=== PATIENT | male | born 1960 | race Caucasian/White ===

== ENCOUNTER 2017-01-16 11:53 | Observation (INO) | payer OTHER ==
[~2017-01-16] VITALS: Ht 177.8 cm; Wt 88.0 kg
--- NOTE | 2017-01-16 12:20 | ED GENERAL ADULT ---
See Addendum History of Present Illness General Chief Complaint: General Adult Stated Complaint: MULTIPLE COMPLAINTS Source: patient Exam Limitations: no limitations Vital Signs & Intake/Output Vital Signs & Intake/Output Vital Signs Date Time Temp Pulse Resp B/P B/P Pulse O2 O2 Flow FiO2 Mean Ox Delivery Rate 01/16 1353 98.0 63 20 126/77 98 Room Air 01/16 1210 97.6 76 18 153/84 96 Room Air Allergies Coded Allergies: MDX - Penicillin (PENICILLIN) (SWELLING 06/24/12) Reconcile Medications Rivaroxaban (Xarelto) 20 MG TABLET 1 TAB PO DAILY DVT (Reported) with food Rosuvastatin Calcium (Crestor) 5 MG TABLET 1 TAB PO DAILY CHOLESTEROL ( Reported) Triage Note: C/O DIZZINESS SINCE 729 THIS AM, WITH TINGLING IN HANDS AND FEET, NOW C/O CHEST PAIN WITH NAUSEA AND SLIGHT SOB. Triage Nurses Notes Reviewed? yes Onset: Abrupt Duration: hour(s): HPI: 01/16/17 3 PM 56-year-old male presents to the emergency department for chest pain and altered mental status. According to the family he was in his usual state of health until this morning when he developed confusion. He said he was saying things that didn't make sense. He also admitted to the left lower extremity weakness. Now in the emergency department he complained of retrosternal chest pain 5 out of 10. No shortness of breath. The onset of the symptoms was abrupt, the duration was just today, the severity was significant as his symptoms required him to come to the emergency department for care. Past History Travel History Traveled to [place] past 21 day No Medical History Any Pertinent Medical History? see below for history Cardiovascular: hyperlipidemia, BLOOD CLOT R ARM Surgical History Surgical History: non-contributory Psychosocial History Who do you live with Patient/Self Services at Home None What is your primary language Afghan Tobacco Use: Never used ETOH Use: occasional use Family History Hx Contributory? No Review of Systems Review of Systems Constitutional: Denies: fever. EENTM: Denies: visual changes. Respiratory: Denies: short of breath. Cardiovascular: Reports: chest pain. GI: Denies: abdominal pain. Genitourinary: Reports: no symptoms. Musculoskeletal: Reports: no symptoms. Skin: Reports: no symptoms. Neurological/Psychological: Reports: see HPI. Hematologic/Endocrine: Reports: no symptoms. Immunologic/Allergic: Reports: no symptoms. Physical Exam Physical Exam General Appearance: alert, awake, anxious, mild distress Head: atraumatic, normal appearance Eyes: Bilateral: normal appearance, PERRL, EOMI. Ears, Nose, Throat: normal ENT inspection Neck: normal inspection, supple, full range of motion Respiratory: chest non-tender, no respiratory distress Cardiovascular: regular rate/rhythm Peripheral Pulses: 4+ radial (R), 4+ radial (L) Gastrointestinal: soft, non-tender Back: normal inspection Extremities: no edema Neurologic/Psych: no motor/sensory deficits, awake, alert, oriented x 3 Skin: intact, normal color, warm/dry Core Measures ACS in differential dx? Yes CVA/TIA Diagnosis: No Severe Sepsis Present: No Septic Shock Present: No Progress Differential Diagnoses I considered the following diagnoses in my evaluation of the patient: [Acute coronary syndrome, TIA, adverse drug reaction, alcohol intoxication, withdrawal syndrome] Plan of Care: Orders Procedure Date/time Status Regular Diet 01/16 L Complete Heart Healthy Diet 01/[address] in observation 01/16 1456 Active ED Holding Orders 01/16 1456 Active Vital Signs 01/16 1456 Active Code Status 01/16 1456 Active Patient Data 01/16 1455 Active URINALYSIS 01/16 1307 Complete TROPONIN LEVEL 01/16 1230 Complete PROTHROMBIN TIME 01/16 1230 Complete COMPREHENSIVE METABOLIC PANEL 01/16 1230 Complete CBC WITHOUT DIFFERENTIAL 01/16 1230 Complete EKG 01/16 1211 Active Current Medications Sig/Rachel Start time Last Medication Dose Stop Time Status Admin Sodium Chloride 1,000 ML ONCE ONE 01/16 1230 AC 01/16 (Normal Saline 0.9%) 01/17 0149 1249 Laboratory Tests 01/16/17 1308: Urinalysis LIGHT H, Urine Color YEL, Urine Clarity CLEAR, Urine pH 6.0, Ur Specific Mason 1.015, Urine Protein NEG, Urine Ketones NEG, Urine Nitrite NEG, Urine Bilirubin NEG, Urine Urobilinogen 0.2, Ur Leukocyte Esterase NEG, Ur Microscopic SEDIMENT EXAMINED, Urine RBC 1-3, Urine WBC RARE, Urine Bacteria RARE H, Urine Mucus FEW, Urine Hemoglobin SMALL H, Urine Glucose NEG 01/16/17 1235: Anion Gap 7, Estimated GFR > 60, BUN/Creatinine Ratio 21.1, Glucose 115 H, Calcium 9.4, Total Bilirubin 0.5, AST 22, ALT 29, Alkaline Phosphatase 45, Troponin I < 0.01, Total Protein 6.8, Albumin 4.1, Globulin 2.7, Albumin/ Globulin Ratio 1.5, PT 11.3, INR 1.08, CBC w Diff NO MAN DIFF REQ, RBC 5.38, MCV 87.3, MCH 29.3, RDW 14.0, MPV 7.7, Gran % 74.3, Lymphocytes % 18.0 L, Monocytes % 6.8, Eosinophils % 0.6, Basophils % 0.3, Absolute Granulocytes 6.8 H, Absolute Lymphocytes 1.7, Absolute Monocytes 0.6, Absolute Eosinophils 0.1, Absolute Basophils 0, PUBS MCHC 33.6 Initial ED EKG: NSR Prior EKG: unchanged Departure Departure Disposition: STILL A PATIENT Condition: Stable Clinical Impression Primary Impression: Altered mental status Secondary Impressions: Chest pain Referrals: MANSOOR MOTTA,MARCELO Licea (PCP/Family) Departure Forms: Customer Survey General Discharge Information Observation Note Spoke With: LEYDI BAKER MD Physician Advisor Notified: CHERIE COSBY DO Place Patient In: Non-ED OBS Care Area Rationale for Observation: My rational for observation is as follows [the patient needs observation for neuro exams every 6 hours and serial troponins]. Critical Care Note Critical Care Note Critical Care Time: non-applicable
[2017-01-16 12:43] LABS: ABSOLUTE BASOPHIL COUNT 0 /CUMM (0.0-0.2); ABSOLUTE EOSINOPHIL COUNT 0.1 /CUMM (0.0-0.7); ABSOLUTE GRANULOCYTE CT 6.8 /CUMM (1.4-6.5); ABSOLUTE LYMPH COUNT 1.7 /CUMM (1.2-3.4); ABSOLUTE MONOCYTE COUNT 0.6 /CUMM (0.10-0.60); BASOPHIL % 0.3 % (0.0-2.0); EOSINOPHIL % 0.6 % (0-5); GRANULOCYTE % 74.3 % (42.2-75.2); HEMATOCRIT 46.9 % (42-52); MEAN CORPUSCULAR HGB 29.3 PG (27.0-31.0); MEAN CORPUSCULAR HGB CONC 33.6 G/DL (33.0-37.0); MEAN CORPUSCULAR VOLUME 87.3 FL (80.0-94.0); MEAN PLATELET VOLUME 7.7 FL (7.4-10.4); PLATELET COUNT 245 /CUMM (130-400); RED BLOOD CELL CT 5.38 /CUMM (4.70-6.10); WHITE BLOOD CELL COUNT 9.2 /CUMM (4.8-10.8)
[2017-01-16 13:01] LABS: PT 11.3 SEC (9.4-12.5)
--- NOTE | 2017-01-16 13:16 | RADIOLOGY REPORT ---
EXAMINATION: CHEST 1 VIEW CLINICAL INFORMATION: Chest pain. COMPARISON: None. TECHNIQUE: An AP view of the chest is provided. FINDINGS: The cardiac silhouette is not enlarged. The mediastinal and hilar contours are unremarkable. There are neither pleural effusions nor pneumothoraces. There are no consolidations. The osseous structures are unremarkable. IMPRESSION: No evidence for acute disease.
--- NOTE | 2017-01-16 13:39 | CT SCAN REPORT ---
EXAMINATION: CT HEAD WITHOUT CONTRAST CLINICAL INFORMATION: Altered mental status. COMPARISON: 06/24/2012. TECHNIQUE: Contiguous axial images of the brain were obtained without IV contrast. DLP: 644 mGy-cm. FINDINGS: There are no pathologic extra-axial fluid collections. The lateral, third, fourth ventricles are nondilated and concordant with the appearance of the sulci. There is no evidence for acute intraparenchymal hemorrhage or infarct. There is neither mass nor mass effect. There is no shift of midline structures. There is right mastoid opacification. The paranasal sinuses and mastoid air cells are otherwise clear. There are no osseous lesions. IMPRESSION: No evidence for acute intracranial injury.
[2017-01-16] MEDS ORDERED: XARELTO20 M2 PO (14:13)
[2017-01-16] MEDS ORDERED: CRESTOR5 M1 PO (14:13)
--- NOTE | 2017-01-16 15:49 | History & Physical ---
TATE MOTTA,[facility] 01/16/17 1549: General Information and HPI MD Statement: I have seen and personally examined SHERRY EDWARDS and documented this H&P. The patient is a 56 year old M who presented with a patient stated chief complaint of [dizziness and chest pain]. Source of Information: patient, old records Exam Limitations: no limitations History of Present Illness: 56-year-old male with a past medical history hyperlipidemia, right upper extremity DVT on cervical disk fusion and chronic back pain who presented to [place] ED complaining of dizziness, chest pain, heaviness on the lower extremity, and tingling and numbness on fingers and toes. patient woke up and immediately started to complaining of acute dizziness, nausea with one episode of nonbloody vomiting. This episode was associated with bilateral upper and lower extremity tingling and numbness. Patient also reported shortness of breath and non-radiating, 6/10, pressure-like, chest pain. Pain increase with sitting up and decreased with lying flat. Patient denies palpitations, cough, or similar symptoms on the past. He also reported progressive bilateral ear ringing without change of hearing. Patient reported 40+ years of one PPD smoking history. He is currently smoker. 2 weeks ago patient was started on diazepam and flexeril for chronic back pain, last taken 2 days ago. He also takes medical marijuana. Past family hx Father: HTN Mother: lung cancer Grand father: lung cancer Grand: mother: bone cancer Uncle: lung cancer Allergies/Medications Allergies: Coded Allergies: MDX - Penicillin (PENICILLIN) (SWELLING 06/24/12) Past History Travel History Traveled to [place] past 21 day No Medical History Cardiovascular: hyperlipidemia, BLOOD CLOT R ARM Surgical History Surgical History: cervical disk fusion Past Family/Social History Family History Relations & Conditions if any Family history was reviewed; no changes noted. Psychosocial History Services at Home: None Primary Language: British Smoking Status: Current Everyday Smoker ETOH Use: occasional use Illicit Drug Use: marijuana (medical for back pain) Review of Systems Review of Systems Constitutional: Reports: weakness. Denies: chills, diaphoresis, fever, malaise. EENTM: Denies: blurred vision, visual changes, ear discharge, ear pain, hearing changes. Cardiovascular: Reports: chest pain. Denies: edema, orthopena, palpitations, peripheral edema, syncope. Respiratory: Reports: short of breath. Denies: cough, hemoptysis, orthopnea, sputum production. GI: Reports: nausea, vomiting. Denies: abdominal pain, bloating, constipation, diarrhea, melena. Genitourinary: Denies: dysuria, frequency, hematuria. Musculoskeletal: Reports: back pain. Exam & Diagnostic Data Last 24 Hrs of Vital Signs/I&O Vital Signs Date Time Temp Pulse Resp B/P B/P Pulse O2 O2 Flow FiO2 Mean Ox Delivery Rate 01/16 1726 98.3 63 14 136/84 97 Room Air 01/16 1602 97.5 70 18 121/77 96 Room Air 01/16 1353 98.0 63 20 126/77 98 Room Air 01/16 1210 97.6 76 18 153/84 96 Room Air Intake & Output 01/16 1600 01/16 0800 01/16 0000 Intake Total 1000 Output Total Balance 1000 Intake, IV 1000 Patient 87.997 kg Weight Weight Reported by Patient Measurement Method Physical Exam General Appearance Alert, Oriented X3, Cooperative, No Acute Distress HEENT Atraumatic, PERRLA, EOMI, Mucous Membr. moist/pink, ears WNL B/L Neck Supple, No JVD, +2 Carotid Pulse wo Bruit Cardiovascular Regular Rate, Normal S1, Normal S2, No Murmurs Lungs Clear to Auscultation, Normal Air Movement Abdomen Normal Bowel Sounds, Soft, No Tenderness Neurological Normal Speech, Strength at 5/5 X4 Ext, Sensation Intact, Cranial Nerves 3-12 NL Extremities No Clubbing, No Cyanosis, No Edema Last 24 Hrs of Labs/Mode: Laboratory Tests 01/16/17 1850: Troponin I < 0.01 01/16/17 1550: Methadone Screen Cancelled, Barbiturate Screen Cancelled, Ur Phencyclidine Scrn Cancelled, Amphetamines Screen Cancelled, U Benzodiazepines Scrn Cancelled, Urine Cocaine Screen Cancelled, Urine Cannabis Screen Cancelled 01/16/17 1308: Urine Opiates Screen < 100.00, Methadone Screen < 40, Barbiturate Screen < 60, Ur Phencyclidine Scrn < 6.00, Amphetamines Screen < 100, U Benzodiazepines Scrn < 85, Urine Cocaine Screen < 50, Urine Cannabis Screen 53.70 H, Urinalysis LIGHT H, Urine Color YEL, Urine Clarity CLEAR, Urine pH 6.0, Ur Specific Maiden 1.015, Urine Protein NEG, Urine Ketones NEG, Urine Nitrite NEG, Urine Bilirubin NEG, Urine Urobilinogen 0.2, Ur Leukocyte Esterase NEG, Ur Microscopic SEDIMENT EXAMINED, Urine RBC 1-3, Urine WBC RARE, Urine Bacteria RARE H, Urine Mucus FEW, Urine Hemoglobin SMALL H, Urine Glucose NEG 01/16/17 1235: Anion Gap 7, Estimated GFR > 60, BUN/Creatinine Ratio 21.1, Glucose 115 H, Calcium 9.4, Total Bilirubin 0.5, AST 22, ALT 29, Alkaline Phosphatase 45, Troponin I < 0.01, Total Protein 6.8, Albumin 4.1, Globulin 2.7, Albumin/ Globulin Ratio 1.5, PT 11.3, INR 1.08, CBC w Diff NO MAN DIFF REQ, RBC 5.38, MCV 87.3, MCH 29.3, RDW 14.0, MPV 7.7, Gran % 74.3, Lymphocytes % 18.0 L, Monocytes % 6.8, Eosinophils % 0.6, Basophils % 0.3, Absolute Granulocytes 6.8 H, Absolute Lymphocytes 1.7, Absolute Monocytes 0.6, Absolute Eosinophils 0.1, Absolute Basophils 0, PUBS MCHC 33.6, Serum Alcohol < 10.0 Assessment/Plan Assessment: #Chest Pain Hx of HLD. EKG showed no ST changes. Asymptomatic at admission time. * monitor on tele * r/o ACS with serial EKG and trops * ECHO * start Aspirin 81 * Cont' rovastatin 40 mg (gets myalgia with lipitor) #Dizziness, UE/LE numbness and heaviness Hx of HLD. Hx of DVT. Questionable TIA. CT head; No evidence for acute intracranial injury. * Start Aspirin 81 mg daily. * increase Crestor to 40 mg daily. * Carotid US * ECHO * Neuro consult #Hyperlipidemia Atorvastatin caused myalgia. * Cont' Crestor at 40 mg/daily #Chronic Back Pain Patient is taking medical marijuana. 2 weeks ago patient was started on diazepam and flexeril, last taken 2 days ago. 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 last seen for DVT year ago. every time he stop Xarelto he gets swelling and pain on the right arm. * Continue Xarelto. Heart healthy DVT PPX Xarelto Full Code As Ranked By This Provider Problem List: 1. Cervical vertebral fusion 2. Chest pain Core Measures/Miscellaneous Acute Coronary Syndrome ACS Diagnosis: No Cerebrovascular Accident CVA/TIA Diagnosis: No Congestive Heart Failure CHF Diagnosis: No Venous Thromboembolism VTE Risk Factors: Age > 40, Previous VTE, Smoking No Mech VTE prophylaxis d/t: No contraindications No VTE Pharm Prophylaxis d/t: No contraindications VTE Diagnosis: No VTE Type: NONE VTE Confirmed by (Test): NONE Severe Sepsis Severe Sepsis Present: No Septic Shock Septic Shock Present: No Miscellaneous Documentation Attending Case Discussed With: LEYDI BAKER MD Primary Care Physician: ARISTEO MAX MD Patient sees these Specialists cardiology neurology Level of Patient Care: Telemetry CLEMENTINA DEAN 01/16/17 1609: Resident Review Statement Resident Statement: examined this patient, discussed with sales management intern, agreed with sales management intern Other Findings: Patient is 56-year-old gentleman with past medical history of cervical spinal stenosis, hyperlipidemia and upper extremity DVT on as it also came with chief complaint of acute onset of dizziness along with bilateral hand numbness/ tingling with heaviness in his bilateral lower extremities since morning. Patient mentioned that this morning when he got up he felt very dizzy that he has to go back to his bed and felt like room is spinning around him. At the same time he also feels that his both hands are getting numb, his left leg gave out and then right leg gave up also and felt very heavy. During this episode he also experienced substernal chest pain 8 out of 10 but denied any diaphoresis or radiation. The patient was brought to ER by his daughter. He felt better after getting normal saline and meclizine in ER. He still feeling some dizziness when he went up to use the restroom. Patient endorses that he has chronic sinusitis and take Claritin as needed but denied any acute upper respiratory tract infection recently. He had chronic frequent urinary infections but no ear pain last ear discharge or hearing loss recently. Patient was also using chronic Flexeril and diazepam for many years but he was off of them for many years but restarted them almost 2 weeks ago but stopped 2 days ago. Vital signs on admission were temperature 97.6, pulse 76, respiratory rate 18, blood pressure 153/84 and he was saturating 96% on room air. Again for WBC count 9.2, hemoglobin 15.8, hematocrit 46.9, platelet count 245, INR 1.08, sodium 139, potassium 5.4, BUNs 19, creatinine 0.9, your urinalysis Chest x-ray was negative for any cardiopulmonary pathology Head CT was negative for any acute intracranial pathology Physical examination Constitutional alert and oriented 3 HEENT atraumatic, PERRLA, clear tympanic membrane, no nystagmus Neck supple no LAD, no carotid bruit Chest clear to auscultate Heart S1-S2 normal with no added sounds Abdomen soft with no organomegaly Extremities no edema or cyanosis noted Neurological cranial nerves II-12 normal, no neurological deficit noted, normal motor and sensory examination Assessment and plan Patient is 56-year-old male current smoker with history of hyperlipidemia and came with chief complaint of dizziness with bilateral upper extremity numbness and associated chest pain concerning for TIA and we will rule out ACS given his risk factors. Problem list 1. dizziness most likely viral in etiology with TIA to be ruled out 2. Sternal chest pain. Rule out ACS 3. Hyperlipidemia 4. History of severe spinal stenosis, chronic back pain and medical marijuana 5. History of DVT on xeralto 6. Hyperkalemia Plan 1. Telemetry monitoring 2. Neurology consultation 3. Cardiology consultation 4. We will carotid Doppler to rule out carotid stenosis 5. Echocardiogram to rule out any cardiac abnormality, regional wall motion abnormalities 6. Serial EKGs and troponins to rule out ACS we will do it at 6 PM and 12 PM 7. We will start patient on aspirin 8. We will increase dose of Crestor to 40 mg daily 9. We'll continue to also 10. Given his history of chronic benzo use we'll do toxicology screening and if is still in the system we might watch him closely for benzos withdrawal Pharmacological DVT prophylaxis Heart healthy diet Patient is full code LEYDI BAKER MD 01/16/172014: General Information and HPI Allergies/Medications Home Med list Aspirin (Aspirin*) 81 MG TAB.CHEW 81 MG PO DAILY BLOOD HEALTH Rivaroxaban (Xarelto) 20 MG TABLET 1 TAB PO DAILY DVT (Reported) with food Rosuvastatin Calcium (Crestor) 40 MG TABLET 1 TAB PO DAILY HIGH LIPID Attending MD Review Statement Attending Statement Attending MD Statement: examined this patient, discuss w/resident/PA/AUTOMATIC FOLDER SEAMER, agreed w/resident/PA/AUTOMATIC FOLDER SEAMER, discussed with family, reviewed EMR data (avail), reviewed images, amended to note Attending Assessment/Plan: The patient is a 56 yo male with h/o HL, RUE DVT (on Xarelto), and chronic back pain who presented in the ED after an episode this morning where he noted transient dizziness/lightheadedness, feeling of tingling and heaviness in both UE/LE as well as numbness and cold sensation in feet/toes. Also simultaneously described some substernal chest pain which was worse was described as pressure that resolved. He stated he had not taken his morning medication (including Xarelto). At the time of my exam his symptoms had entirely resolved. Physical Exam: VS: T 98.0, P 63, R 20, BP 126/77, PO 98% RA HEENT: eyes- PERRLA, EOMI gillian- dry mucosa w/o lesions Neck: no JVD/bruits/adenopathy Chest: clear with mild diminished breath sounds Cor: RRR, nl S1, S2 w/o murm Abd: BS+, soft, NT, - masses or HSM Ext: no edema LE, ? proximal RUE with slight firmness at site of prior known clot? Neuro: alert & oriented x 3, non-focal exam Labs/Tests- as above Impression/Plan: #Chest Pain - atypical for cardiac pain, however the patient does have risk factors. EKG w/o ischemic changes (no pain at time of exam). Doubt PE on Xarelto and no hypoxia or tachycardia. Plan: Will bring in as observation patient to telemetry service. Check serial troponin I levels, observe for further chest pain. ECHO cardiogram. Cardiology consult in morning (note- patient does see corporate quality assurance manager in [place], cannot recall name). Begin ASA 81 mg daily. #Transient Dizziness/Lightheadedness/UE/LE Heaviness- ? TIA. May have also represented hypoglycemia as the patient had not eaten. Plan: Begin ASA 81 mg daily. Increase Crestor to 40 mg daily. Carotid US, ECHO, etc. Neuro consult. Observe on telemetry and check for arrhythmia- q4h neuro checks. #Hyperlipidemia- patient states not well controlled. On Crestor as Atorvastatin caused symptoms. Plan: Continue Crestor at increased dose while evaluating for TIA. #Chronic Back Pain- patient initially did not indicate that he has been taking Valium (picked up on med reconciliation). He had received 90 tabs of 5 mg for [address] Aristeo Lawrence who is a Se[employer] Maker in [place], [place]. He had also prescribed his Crestor and Xarelto and patient states he acts as his PCP. Patient states also used medical marijuana. Plan: Patient considering alternative PCP closer to home ([place]). Will check CTPMP and treat with some valium to avoid withdrawal. 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 Unclear if hypercoag workup has been done. Plan: Continue Xarelto and obtain old records from "Data Technician" in [place].
--- NOTE | 2017-01-16 17:24 | ULTRASOUND REPORT ---
EXAMINATION: DUPLEX BILATERAL CAROTID ULTRASOUND CLINICAL INFORMATION: TIA COMPARISON: None. TECHNIQUE: Duplex bilateral carotid US was performed using real-time ultrasound and Doppler techniques (integrating B-mode 2D vascular images, Doppler spectral analysis and color flow Doppler imaging). These techniques were utilized to interrogate the extracranial carotid and vertebral arteries bilaterally. The degree of stenosis is based off criteria similar to NASCET. FINDINGS: 1. On the right: Plaque is present at the carotid bifurcation but velocity measurements are normal and do not suggest a stenosis of greater than 50% diameter reduction in the right ICA. The vertebral artery is patent demonstrating antegrade flow. The right external carotid artery shows no significant stenosis.. 2. On the left: No plaque is present at the carotid bifurcation and all velocity measurements are normal and do not suggest a stenosis of greater than 50% diameter reduction in the left ICA. The vertebral artery is patent demonstrating antegrade flow. The left external carotid artery shows no significant stenosis.. IMPRESSION: There is plaque present in the right internal carotid artery with normal velocities consistent with a minimal 0-49% stenosis. The left side is normal with no plaque seen.
[2017-01-16 17:26] VITALS: BP 136/84
--- NOTE | 2017-01-16 20:34 | Cons- Cardiology ---
FABIENNE LANDEROS MD 01/16/17 2020: General Information and HPI Consulting Request Date of Consult: 01/16/17 Requested By: LEYDI BAKER MD Reason for Consult: Chest pain History of Present Illness: The patient is a 56-year-old male with history of hyperlipidemia, right upper extremity DVT, and chronic back pain who presents with complaint of chest discomfort, dizziness, and nausea. He woke this morning with complaint of acute dizziness, this was followed by nausea, with a single episode of vomiting. He subsequently had substernal chest pressure which was a 6/10 in severity, it was associated with tingling of the fingers. No shortness of breath. No syncope. No diaphoresis. He is currently pain-free. Allergies/Medications Allergies: Coded Allergies: MDX - Penicillin (PENICILLIN) (SWELLING 06/24/12) Current Medications: Current Medications Sig/Rachel Start time Last Medication Dose Route Stop Time Status Admin Acetaminophen 650 MG Q6P PRN 01/16 1615 AC PO Aspirin 81 MG DAILY 01/17 1000 AC PO Aspirin 0 .STK-MED ONE 01/16 1649 DC PO Aspirin 81 MG DAILY 01/16 1558 DC 01/16 PO 1645 Ibuprofen 600 MG Q6P PRN 01/16 1615 AC PO Meclizine HCl 25 MG ONCE ONE 01/16 1430 DC 01/16 PO 01/16 1431 1420 Meclizine HCl 0 .STK-MED ONE 01/16 1423 DC PO Oxycodone/ 2 TAB Q6P PRN 01/16 1615 AC Acetaminophen PO Rivaroxaban 20 MG DAILY 01/16 1615 AC 01/16 PO 1645 Rosuvastatin Calcium 40 MG 1700 01/16 1700 AC 01/16 PO 2000 Sodium Chloride 1,000 ML ONCE ONE 01/16 1230 AC 01/16 IV 01/17 0149 1249 Review of Systems Review of Systems: No rash. No tremor. No melena. All other systems are reviewed and noted to be negative.. 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 Surgical History Surgical History: non-contributory Family History Relations & Conditions If Any: FATHER Hypertension Psychosocial History Services at Home: None Smoking Status: Current Everyday Smoker ETOH Use: occasional use Exam & Diagnostic Data Vital Signs and I&O Vital Signs Date Time Temp Pulse Resp B/P B/P Pulse O2 O2 Flow FiO2 Mean Ox Delivery Rate 01/16 1726 98.3 63 14 136/84 97 Room Air 01/16 1602 97.5 70 18 121/77 96 Room Air 01/16 1353 98.0 63 20 126/77 98 Room Air 01/16 1210 97.6 76 18 153/84 96 Room Air Intake & Output 01/16 1600 01/16 0800 01/16 0000 01/15 1600 01/15 0800 01/15 0000 Intake Total 1000 Output Total Balance 1000 Intake, IV 1000 Patient 194 lb Weight Weight Reported by Patient Measurement Method Physical Exam: Gen: The patient is in no acute distress HEENT: Normal nose, ears, and oropharynx. Pupils equal bilaterally. Conjunctiva normal. Neck: Supple with no JVD, no masses, and no thyromegaly Lungs: Clear to auscultation with normal respiratory effort Heart: RRR, S1, S2, no murmurs. No peripheral edema, 2+ pulses in the lower extremities bilaterally Abdomen: Soft, nontender, no masses. No hepatomegaly. No splenomegaly Extremities: No clubbing or cyanosis. Normal muscle strength in the upper and lower extremities. Skin: Normal skin turgor with no skin ulcers or lesions noted. Neuro: Cranial nerves intact. Sensation intact Psych: Alert and oriented 3 with appropriate affect Labs/Mode Results: Laboratory Tests 01/16 01/16 01/16 1850 1550 1308 Chemistry Troponin I Pending Toxicology Urine Opiates Screen (>2000 NG/ML) < 100.00 Methadone Screen (>300 NG/ML) Cancelled < 40 Barbiturate Screen (>200 NG/ML) Cancelled < 60 Ur Phencyclidine Scrn (>25 NG/ML) Cancelled < 6.00 Amphetamines Screen (>1000 NG/ML) Cancelled < 100 U Benzodiazepines Scrn (>200 NG/ML) Cancelled < 85 Urine Cocaine Screen (>300 NG/ML) Cancelled < 50 Urine Cannabis Screen (>50 NG/ML) Cancelled 53.70 H Urines Urinalysis LIGHT H Urine Color (YEL,AMB,STR) YEL Urine Clarity (CLEAR) CLEAR Urine pH (5.0 - 8.0) 6.0 Ur Specific [place] (1.001 - 1.035) 1.015 Urine Protein (NEG,<30 MG/DL) NEG Urine Ketones (NEG) NEG Urine Nitrite (NEG) NEG Urine Bilirubin (NEG) NEG Urine Urobilinogen (0.1 - 1.0 EU/dl) 0.2 Ur Leukocyte Esterase (NEG) NEG Ur Microscopic SEDIMENT EXAMINED Urine RBC (0 - 5 /HPF) 1-3 Urine WBC (0 - 2 /HPF) RARE Urine Bacteria (NEG/NONE) RARE H Urine Mucus (FEW,NONE) FEW Urine Hemoglobin (NEG) SMALL H Urine Glucose (N MG/DL) NEG 01/16 1235 Chemistry Sodium (137 - 145 mmol/L) 139 Potassium (3.5 - 5.1 mmol/L) 5.4 H Chloride (98 - 107 mmol/L) 105 Carbon Dioxide (22 - 30 mmol/L) 27 Anion Gap (5 - 16) 7 BUN (9 - 20 mg/dL) 19 Creatinine (0.7 - 1.2 mg/dL) 0.9 Estimated GFR (>60 ml/min) > 60 BUN/Creatinine Ratio (7 - 25 %) 21.1 Glucose (65 - 99 mg/dL) 115 H Calcium (8.4 - 10.2 mg/dL) 9.4 Total Bilirubin (0.2 - 1.3 mg/dL) 0.5 AST (17 - 59 U/L) 22 ALT (21 - 72 U/L) 29 Alkaline Phosphatase (< 127 U/L) 45 Troponin I (<0.11 ng/ml) < 0.01 Total Protein (6.3 - 8.2 g/dL) 6.8 Albumin (3.5 - 5.0 g/dL) 4.1 Globulin (1.9 - 4.2 gm/dL) 2.7 Albumin/Globulin Ratio (1.1 - 2.2 %) 1.5 Coagulation PT (9.4 - 12.5 SEC) 11.3 INR (0.90 - 1.17) 1.08 Hematology CBC w Diff NO MAN DIFF REQ WBC (4.8 - 10.8 /CUMM) 9.2 RBC (4.70 - 6.10 /CUMM) 5.38 Hgb (14.0 - 18.0 G/DL) 15.8 Hct (42 - 52 %) 46.9 MCV (80.0 - 94.0 FL) 87.3 MCH (27.0 - 31.0 PG) 29.3 RDW (11.5 - 14.5 %) 14.0 Plt Count (130 - 400 /CUMM) 245 MPV (7.4 - 10.4 FL) 7.7 Gran % (42.2 - 75.2 %) 74.3 Lymphocytes % (20.5 - 51.1 %) 18.0 L Monocytes % (1.7 - 9.3 %) 6.8 Eosinophils % (0 - 5 %) 0.6 Basophils % (0.0 - 2.0 %) 0.3 Absolute Granulocytes (1.4 - 6.5 /CUMM) 6.8 H Absolute Lymphocytes (1.2 - 3.4 /CUMM) 1.7 Absolute Monocytes (0.10 - 0.60 /CUMM) 0.6 Absolute Eosinophils (0.0 - 0.7 /CUMM) 0.1 Absolute Basophils (0.0 - 0.2 /CUMM) 0 PUBS MCHC (33.0 - 37.0 G/DL) 33.6 Toxicology Serum Alcohol (<10 MG/DL) < 10.0 Diagnostic Data EKG Results EKG tracing is independent reviewed, and reveals normal sinus rhythm at 70, normal EKG CXR Results chest x-ray: Negative Other Results head CT: Negative carotid Doppler study: Negative Assessment/Plan Assessment/Plan Assessment: 1. Lightheadedness and dizziness 2. Chest discomfort, rule out acute coronary syndrome 3. 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 Hyperlipidemia Plan: * Check serial troponin to rule out myocardial infarction * Monitor on telemetry. * Echocardiogram. * Continue aspirin. * If myocardial infarction is ruled out and the patient is clinically stable, we will plan on doing stress testing as an outpatient. Consult Acknowledgment - Thank you for your consult request. LEYDI LINARES MD 01/17/17 2579: General Information and HPI Allergies/Medications Home Med List: Aspirin (Aspirin*) 81 MG TAB.CHEW 81 MG PO DAILY BLOOD HEALTH Rivaroxaban (Xarelto) 20 MG TABLET 1 TAB PO DAILY DVT (Reported) with food Rosuvastatin Calcium (Crestor) 40 MG TABLET 1 TAB PO DAILY HIGH LIPID Assessment/Plan Consult Acknowledgment - Thank you for your consult request.
[2017-01-17 01:21] VITALS: BP 140/74
--- NOTE | 2017-01-17 07:44 | PN- Housestaff ---
TATE MOTTA,[facility] 01/17/17 0744: Subjective Follow-up For: dizziness and chest pain Tele-Events Since Last Visit: Sinus rhythm, heart rate 70s to 80s, no overnight events Subjective: Afebrile, hemodynamically stable, saturating well on room air. No acute overnight events reported. Patient denies any current active cleanout would like to be discharge today. Review of Systems Constitutional: Reports: no symptoms. Objective Last 24 Hrs of Vital Signs/I&O Vital Signs Date Time Temp Pulse Resp B/P B/P Pulse O2 O2 Flow FiO2 Mean Ox Delivery Rate 01/17 0823 97.9 75 18 160/78 96 Room Air 01/17 0800 96 Room Air 01/17 0121 97.9 56 12 140/74 95 Room Air 01/16 1726 98.3 63 14 136/84 97 Room Air 01/16 1602 97.5 70 18 121/77 96 Room Air Intake & Output 01/17 1600 01/17 0800 01/17 0000 Intake Total 200 730 Output Total Balance 200 730 Intake, IV 10 Intake, Oral 200 720 Patient 87.997 kg Weight Physical Exam General Appearance: Alert, Oriented X3, Cooperative, No Acute Distress HEENT: Atraumatic, PERRLA, EOMI, Mucous Membr. moist/pink Cardiovascular: Regular Rate, Normal S1, Normal S2, No Murmurs Lungs: Clear to Auscultation, Normal Air Movement Abdomen: Soft, No Tenderness Neurological: Normal Gait, Normal Speech, Strength at 5/5 X4 Ext, Cranial Nerves 3-12 NL Extremities: No Clubbing, No Cyanosis, No Edema Current Medications: Current Medications Sig/Rachel Start time Last Medication Dose Route Stop Time Status Admin Acetaminophen 650 MG Q6P PRN 01/16 161 DCD PO Aspirin 81 MG DAILY 01/17 1000 DCD 01/17 PO 0922 Aspirin 0 .STK-MED ONE 01/16 1649 DC PO Aspirin 81 MG DAILY 01/16 1558 DC 01/16 PO 1645 Ibuprofen 600 MG Q6P PRN 01/16 161 DCD PO Oxycodone/ 2 TAB Q6P PRN 01/16 1615 DCD Acetaminophen PO Patient Medication 1 ED .STK-MED ONE 01/17 1415 DC Teaching ED 01/17 1416 Rivaroxaban 20 MG DAILY 01/16 1615 DCD 01/17 PO 0922 Rosuvastatin Calcium 40 MG 1700 01/16 1700 DCD 01/16 PO 2000 Sodium Chloride 1,000 ML ONCE ONE 01/16 1230 DC 01/16 IV 01/17 0149 1249 Last 24 Hrs of Lab/Mode Results Last 24 Hrs of Labs/Mics: Laboratory Tests 01/17/17 0605: Anion Gap 8, Estimated GFR > 60, BUN/Creatinine Ratio 17.0, Troponin I < 0.01, CBC w Diff NO MAN DIFF REQ, RBC 5.24, MCV 87.4, MCH 29.2, RDW 14.1, MPV 8.6, Gran % 61.5, Lymphocytes % 25.9, Monocytes % 9.3, Eosinophils % 2.8, Basophils % 0.5, Absolute Granulocytes 6.3, Absolute Lymphocytes 2.7, Absolute Monocytes 1.0 H, Absolute Eosinophils 0.3, Absolute Basophils 0, PUBS MCHC 33.4 01/17/17 0045: Troponin I < 0.01 01/16/17 1850: Troponin I < 0.01 01/16/17 1550: Methadone Screen Cancelled, Barbiturate Screen Cancelled, Ur Phencyclidine Scrn Cancelled, Amphetamines Screen Cancelled, U Benzodiazepines Scrn Cancelled, Urine Cocaine Screen Cancelled, Urine Cannabis Screen Cancelled Assessment/Plan Assessment: #Chest Pain Hx of HLD. EKG showed no ST changes. Asymptomatic at admission time. No event was observed under telemetry monitoring. ACS was ruled out with serial EKG and trops. ECHO was done * Continue Aspirin 81 * Continue rovastatin 40 mg (gets myalgia with lipitor) * The patient will follow-up with Dr. Mckeon as an outpatient and have a nuclear stress test performed as an outpatient. #Dizziness, UE/LE numbness and heaviness Hx of HLD. Hx of DVT. Questionable TIA. CT head; No evidence for acute intracranial injury. Carotid US shows; There is plaque present in the right internal carotid artery with normal velocities consistent with a minimal 0-49% stenosis. The left side is normal with no plaque seen. * Continue Aspirin 81 mg daily. * Continue Crestor to 40 mg daily. * Neuro cleared patient for discharge. #Hyperlipidemia Atorvastatin caused myalgia. * Cont' Crestor at 40 mg/daily #Chronic Back Pain Patient is taking medical marijuana. 2 weeks ago patient was started on diazepam and flexeril, last taken 2 days ago. 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 last seen for DVT year ago. every time he stop Xarelto he gets swelling and pain on the right arm. * Continue Xarelto. Heart healthy DVT PPX Xarelto Full Code Problem List: 1. Chest pain Pain Ratin Pain Location: na Pain Goal: Remain pain free Pain Plan: See A&P Tomorrow's Labs & Rationales: See A&P LEYDI BAKER MD 01/17/17 1223: Attending MD Review Statement Attending Statement Attending MD Statement: examined this patient, discuss w/resident/PA/ORDNANCE ENGINEER, agreed w/resident/PA/ORDNANCE ENGINEER, discussed with family, reviewed EMR data (avail), discussed with nursing, discussed with case mgmt, reviewed images, amended to note Attending Assessment/Plan: The patient was seen and discussed with house staff. Appreciate Neuro and Cardiology input. OK to discharge to home today with current meds. Follow-up with Cardiology for OP stress.
[2017-01-17 07:59] LABS: ABSOLUTE BASOPHIL COUNT 0 /CUMM (0.0-0.2); ABSOLUTE EOSINOPHIL COUNT 0.3 /CUMM (0.0-0.7); ABSOLUTE GRANULOCYTE CT 6.3 /CUMM (1.4-6.5); ABSOLUTE LYMPH COUNT 2.7 /CUMM (1.2-3.4); BASOPHIL % 0.5 % (0.0-2.0); EOSINOPHIL % 2.8 % (0-5); GRANULOCYTE % 61.5 % (42.2-75.2); HEMATOCRIT 45.8 % (42-52); MEAN CORPUSCULAR HGB 29.2 PG (27.0-31.0); MEAN CORPUSCULAR HGB CONC 33.4 G/DL (33.0-37.0); MEAN CORPUSCULAR VOLUME 87.4 FL (80.0-94.0); MEAN PLATELET VOLUME 8.6 FL (7.4-10.4); PLATELET COUNT 233 /CUMM (130-400); RBC DISTRIBUTION WIDTH 14.1 % (11.5-14.5); RED BLOOD CELL CT 5.24 /CUMM (4.70-6.10); WHITE BLOOD CELL COUNT 10.3 /CUMM (4.8-10.8)
[2017-01-17 08:23] VITALS: BP 160/78
--- NOTE | 2017-01-17 08:48 | Cons- Neurology ---
See Addendum General Information and HPI Consulting Request Date of Consult: 01/17/17 Requested By: LEYDI BAKER MD Reason for Consult: dizziness, limb numbness, leg heaviness History of Present Illness: Patient reported 40+ years of one PPD smoking history. He is currently smoker. 2 weeks ago patient was started on diazepam and flexeril for chronic back pain, last taken 2 days ago. He also takes medical marijuana. States he awoke yesterday with substernal chest pain and paresthesias of the hands and feet within this associated sensation of coldness of the distal extremities. Family thought his speech was a bit off at the time. He denied diplopia or vertigo no gait imbalance. No headache no alteration of consciousness. He reports that the sensation of tingling and coldness improved once he was in the hospital and was given intravenous fluids. He has had no symptom recurrence since that time. He has chronic neck and back pain and had multiple prior spine surgeries in [facility]. Of note, he has had paresthesias of the hands and feet in association with his cervical spine disease. Family history of stroke in his paternal grandfather Has been on Lipitor for hyperlipidemia but developed muscle cramps. Was recently switched to Crestor by his primary physician, Dr. Aristeo Joel, in [place]. 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 Allergies/Medications Allergies: Coded Allergies: MDX - Penicillin (PENICILLIN) (SWELLING 06/24/12) Home Med List: Aspirin (Aspirin*) 81 MG TAB.CHEW 81 MG PO DAILY BLOOD HEALTH Rivaroxaban (Xarelto) 20 MG TABLET 1 TAB PO DAILY DVT (Reported) with food Rosuvastatin Calcium (Crestor) 40 MG TABLET 1 TAB PO DAILY HIGH LIPID Current Medications: Current Medications Sig/Rachel Start time Last Medication Dose Route Stop Time Status Admin Acetaminophen 650 MG Q6P PRN 01/16 1615 AC PO Aspirin 81 MG DAILY 01/17 1000 AC PO Aspirin 0 .STK-MED ONE 01/16 1649 DC PO Aspirin 81 MG DAILY 01/16 1558 DC 01/16 PO 1645 Ibuprofen 600 MG Q6P PRN 01/16 1615 AC PO Meclizine HCl 25 MG ONCE ONE 01/16 1430 DC 01/16 PO 01/16 1431 1420 Meclizine HCl 0 .STK-MED ONE 01/16 1423 DC PO Oxycodone/ 2 TAB Q6P PRN 01/16 1615 AC Acetaminophen PO Rivaroxaban 20 MG DAILY 01/16 1615 AC 01/16 PO 1645 Rosuvastatin Calcium 40 MG 1700 01/16 1700 AC 01/16 PO 2000 Sodium Chloride 1,000 ML ONCE ONE 01/16 1230 DC 01/16 IV 01/17 0149 1249 Review of Systems Review of Systems: REVIEW OF SYSTEMS: (-) = negative / normal blank = not discussed Neurologic: see HPI Eyes: (-) ENT: (-) Constitutional: (-) CV: See HPI Respiratory: (-) /Renal: (-) Musculoskeletal: See HPI/PMH Skin: (-) Psychiatric: (-) Heme: (-) GI: (-) Allergy/Immune: (-) Endocrine: (-) Other: (-) 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 Psychiatric: NONE Endocrine: NONE Blood Disorders: NONE 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 Surgical History Surgical History: cervical disk fusion Family History Relations & Conditions If Any: FATHER FH: HTN (hypertension) Hypertension FATHER Psychosocial History Services at Home: None Primary Language: Slovak Smoking Status: Current Everyday Smoker ETOH Use: occasional use Illicit Drug Use: marijuana (medical for back pain) Employment History 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 [employer] Records Exam & Diagnostic Data Vital Signs and I&O Vital Signs Date Time Temp Pulse Resp B/P B/P Pulse O2 O2 Flow FiO2 Mean Ox Delivery Rate 01/17 0823 97.9 75 18 160/78 96 Room Air 01/17 0121 97.9 56 12 140/74 95 Room Air 01/16 1726 98.3 63 14 136/84 97 Room Air 01/16 1602 97.5 70 18 121/77 96 Room Air 01/16 1353 98.0 63 20 126/77 98 Room Air 01/16 1210 97.6 76 18 153/84 96 Room Air Intake & Output 01/17 1600 01/17 0800 01/17 0000 Intake Total 200 730 Output Total Balance 200 730 Intake, IV 10 Intake, Oral 200 720 Patient 194 lb Weight Physical Exam: PHYSICAL EXAMINATION: nl = normal NT or blank = not tested GENERAL Appearance: nl Head: nl Eyes: nl ENT: nl Neck: nl Carotids: nl Lungs: nl Heart: nl Extremities: nl Spine: nl NEUROLOGIC MENTAL STATUS Level of consciousness: nl Orientation: nl Attention / Concentration: nl Memory: nl Fund of Knowledge: nl Speech / Language: nl NEUROLOGIC CRANIAL NERVES I: Olfaction: NT II: Optic nerves: nl Visual albert: nl III: Pupils: nl Levator palpebrae: nl III, IV, : Ocular alignment: nl Extraocular motility: nl Pursuits/ saccades: nl V: Facial sensation: nl Masseter/Pterygoids: nl VII: Facial Motor: nl VIII: Hearing (finger rub): nl IX, X: Uvula and palate: nl XI: SCM, Upper trap.: nl XII: Tongue: nl MOTOR / NEUROMUSCULAR Bulk: nl Tone: nl Strength: nl Rapid alternating movements: nl Fine motor movements: nl Abnormal / involuntary movements: none CEREBELLAR / COORDINATION: intact SENSATION: intact DTRs 1+ to 2+ in the right arm and leg trace to 1+ in the left arm and leg ANDRADE'S: (-) PLANTARS: flexor GAIT: nl Last 48 Hours of Lab Results: Recent lipid panel which patient pulled up from his [employer] database shows total cholesterol of 245, triglyceride 183, LDL 165, HDL 43 Laboratory Tests 01/17 01/17 01/16 0605 0045 1850 Chemistry Sodium (137 - 145 mmol/L) 139 Potassium (3.5 - 5.1 mmol/L) 4.4 4.3 Chloride (98 - 107 mmol/L) 106 Carbon Dioxide (22 - 30 mmol/L) 26 Anion Gap (5 - 16) 8 BUN (9 - 20 mg/dL) 17 Creatinine (0.7 - 1.2 mg/dL) 1.0 Estimated GFR (>60 ml/min) > 60 BUN/Creatinine Ratio (7 - 25 %) 17.0 Troponin I (<0.11 ng/ml) < 0.01 < 0.01 < 0.01 Hematology CBC w Diff NO MAN DIFF REQ WBC (4.8 - 10.8 /CUMM) 10.3 RBC (4.70 - 6.10 /CUMM) 5.24 Hgb (14.0 - 18.0 G/DL) 15.3 Hct (42 - 52 %) 45.8 MCV (80.0 - 94.0 FL) 87.4 MCH (27.0 - 31.0 PG) 29.2 RDW (11.5 - 14.5 %) 14.1 Plt Count (130 - 400 /CUMM) 233 MPV (7.4 - 10.4 FL) 8.6 Gran % (42.2 - 75.2 %) 61.5 Lymphocytes % (20.5 - 51.1 %) 25.9 Monocytes % (1.7 - 9.3 %) 9.3 Eosinophils % (0 - 5 %) 2.8 Basophils % (0.0 - 2.0 %) 0.5 Absolute Granulocytes (1.4 - 6.5 /CUMM) 6.3 Absolute Lymphocytes (1.2 - 3.4 /CUMM) 2.7 Absolute Monocytes (0.10 - 0.60 /CUMM) 1.0 H Absolute Eosinophils (0.0 - 0.7 /CUMM) 0.3 Absolute Basophils (0.0 - 0.2 /CUMM) 0 PUBS MCHC (33.0 - 37.0 G/DL) 33.4 01/16 01/16 1550 1308 Toxicology Urine Opiates Screen (>2000 NG/ML) < 100.00 Methadone Screen (>300 NG/ML) Cancelled < 40 Barbiturate Screen (>200 NG/ML) Cancelled < 60 Ur Phencyclidine Scrn (>25 NG/ML) Cancelled < 6.00 Amphetamines Screen (>1000 NG/ML) Cancelled < 100 U Benzodiazepines Scrn (>200 NG/ML) Cancelled < 85 Urine Cocaine Screen (>300 NG/ML) Cancelled < 50 Urine Cannabis Screen (>50 NG/ML) Cancelled 53.70 H Urines Urinalysis LIGHT H Urine Color (YEL,AMB,STR) YEL Urine Clarity (CLEAR) CLEAR Urine pH (5.0 - 8.0) 6.0 Ur Specific [place] (1.001 - 1.035) 1.015 Urine Protein (NEG,<30 MG/DL) NEG Urine Ketones (NEG) NEG Urine Nitrite (NEG) NEG Urine Bilirubin (NEG) NEG Urine Urobilinogen (0.1 - 1.0 EU/dl) 0.2 Ur Leukocyte Esterase (NEG) NEG Ur Microscopic SEDIMENT EXAMINED Urine RBC (0 - 5 /HPF) 1-3 Urine WBC (0 - 2 /HPF) RARE Urine Bacteria (NEG/NONE) RARE H Urine Mucus (FEW,NONE) FEW Urine Hemoglobin (NEG) SMALL H Urine Glucose (N MG/DL) NEG 01/16 1235 Chemistry Sodium (137 - 145 mmol/L) 139 Potassium (3.5 - 5.1 mmol/L) 5.4 H Chloride (98 - 107 mmol/L) 105 Carbon Dioxide (22 - 30 mmol/L) 27 Anion Gap (5 - 16) 7 BUN (9 - 20 mg/dL) 19 Creatinine (0.7 - 1.2 mg/dL) 0.9 Estimated GFR (>60 ml/min) > 60 BUN/Creatinine Ratio (7 - 25 %) 21.1 Glucose (65 - 99 mg/dL) 115 H Calcium (8.4 - 10.2 mg/dL) 9.4 Total Bilirubin (0.2 - 1.3 mg/dL) 0.5 AST (17 - 59 U/L) 22 ALT (21 - 72 U/L) 29 Alkaline Phosphatase (< 127 U/L) 45 Troponin I (<0.11 ng/ml) < 0.01 Total Protein (6.3 - 8.2 g/dL) 6.8 Albumin (3.5 - 5.0 g/dL) 4.1 Globulin (1.9 - 4.2 gm/dL) 2.7 Albumin/Globulin Ratio (1.1 - 2.2 %) 1.5 Coagulation PT (9.4 - 12.5 SEC) 11.3 INR (0.90 - 1.17) 1.08 Hematology CBC w Diff NO MAN DIFF REQ WBC (4.8 - 10.8 /CUMM) 9.2 RBC (4.70 - 6.10 /CUMM) 5.38 Hgb (14.0 - 18.0 G/DL) 15.8 Hct (42 - 52 %) 46.9 MCV (80.0 - 94.0 FL) 87.3 MCH (27.0 - 31.0 PG) 29.3 RDW (11.5 - 14.5 %) 14.0 Plt Count (130 - 400 /CUMM) 245 MPV (7.4 - 10.4 FL) 7.7 Gran % (42.2 - 75.2 %) 74.3 Lymphocytes % (20.5 - 51.1 %) 18.0 L Monocytes % (1.7 - 9.3 %) 6.8 Eosinophils % (0 - 5 %) 0.6 Basophils % (0.0 - 2.0 %) 0.3 Absolute Granulocytes (1.4 - 6.5 /CUMM) 6.8 H Absolute Lymphocytes (1.2 - 3.4 /CUMM) 1.7 Absolute Monocytes (0.10 - 0.60 /CUMM) 0.6 Absolute Eosinophils (0.0 - 0.7 /CUMM) 0.1 Absolute Basophils (0.0 - 0.2 /CUMM) 0 PUBS MCHC (33.0 - 37.0 G/DL) 33.6 Toxicology Serum Alcohol (<10 MG/DL) < 10.0 Imaging/Other Studies: Head CT hi COMPARISON: 06/24/2012. TECHNIQUE: Contiguous axial images of the brain were obtained without IV contrast. Hd CT 01-16: DLP: 644 mGy-cm. FINDINGS: There are no pathologic extra-axial fluid collections. The lateral, third, fourth ventricles are nondilated and concordant with the appearance of the sulci. There is no evidence for acute intraparenchymal hemorrhage or infarct. There is neither mass nor mass effect. There is no shift of midline structures. There is right mastoid opacification. The paranasal sinuses and mastoid air cells are otherwise clear. There are no osseous lesions. IMPRESSION: No evidence for acute intracranial injury. DICTATED BY: LEYDI HAWKINS MD DATE/TIME DICTATED:01/16/171332 Car 01-16: IMPRESSION: There is plaque present in the right internal carotid artery with normal velocities consistent with a minimal 0-49% stenosis. The left side is normal with no plaque seen. DICTATED BY: AYUSH ANDINO MD DATE/TIME DICTATED:01/16/171713 Assessment/Plan Assessment: Possible TIA versus hyperventilation versus positionally induced exacerbation of cervical myelopathic symptoms Hyperlipidemia, recently started on Crestor Cigarette smoker Recommendations: Continue Crestor Add aspirin 81 mg TIA education Smoking cessation Office follow-up prn Consult Acknowledgment - Thank you for your consult request.
[2017-01-17] MEDS ORDERED: ASPIRIN81 M4 PO (11:16)
[2017-01-17] MEDS ORDERED: CRESTOR40 M2 PO (11:16)
--- NOTE | 2017-01-17 11:24 | Patient Discharge Instructions ---
Discharge Instructions General Discharge Information You were seen/treated for: TIA Special Instructions: Please follow up with cardiology within one week to plan on doing stress testing as an outpatient. Please follow with neurology within one week Please come back if symptoms got worse Diet Continue normal diet: Yes Activity Full Activity/No Limits: Yes Activity Self Limited: Yes Acute Coronary Syndrome Inclusion Criteria At DC or during hospital stay patient has or had the following: ACS DIAGNOSIS No Discharge Core Measures Meds if any: Prescribed or Continued at Discharge Meds if any: NOT Prescribed or Continued at Discharge Congestive Heart Failure Inclusion Criteria At DC or during hospital stay patient has or had the following: CHF DIAGNOSIS No Discharge Core Measures Meds if any: Prescribed or Continued at Discharge Meds if any: NOT Prescribed or Continued at Discharge Cerebrovascular accident Inclusion Criteria At DC or during hospital stay patient has or had the following: CVA/TIA Diagnosis No Discharge Core Measures Meds if any: Prescribed or Continued at Discharge Meds if any: NOT Prescribed or Continued at Discharge Venous thromboembolism Inclusion Criteria VTE Diagnosis No VTE Type NONE VTE Confirmed by (Test) NONE Discharge Core Measures - Per Current guidelines, there needs to be overlap - treatment for the first 5 days of Warfarin therapy. - If discharged on Warfarin prior to 5 days of - overlap therapy, the patient will need to be - assessed for post discharge needs including - *Post discharge parental anticoagulation - *Warfarin and/or parental anticoagulation education - *Follow up date to check INR post discharge At least 5 days overlap therapy as Inpatient No Meds if any: Prescribed or Continued at Discharge Note: Overlap Therapy is Warfarin and Anticoagulant Meds if any: NOT Prescribed or Continued at Discharge
--- NOTE | 2017-01-17 13:24 | PN- Cardiology ---
Subjective Subjective: The patient is doing well today. No further neurological cardiac symptoms. No further chest discomfort. Objective Vital Signs and I&Os Vital Signs Date Time Temp Pulse Resp B/P B/P Pulse O2 O2 Flow FiO2 Mean Ox Delivery Rate 01/17 0823 97.9 75 18 160/78 96 Room Air 01/17 0800 96 Room Air 01/17 0121 97.9 56 12 140/74 95 Room Air 01/16 1726 98.3 63 14 136/84 97 Room Air 01/16 1602 97.5 70 18 121/77 96 Room Air 01/16 1353 98.0 63 20 126/77 98 Room Air Intake & Output 01/17 1600 01/17 0800 01/17 0000 01/16 1600 01/16 0800 01/16 0000 Intake Total 143 839 6435 Output Total Balance 601 940 4591 Intake, IV 10 1000 Intake, Oral 200 720 Patient 194 lb 194 lb Weight Weight Reported by Patient Measurement Method Physical Exam: General Appearance Alert, Oriented X3, Cooperative, No Acute Distress HEENT Atraumatic, PERRLA, EOMI, Mucous Membr. moist/pink, ears WNL B/L Neck Supple, No JVD, +2 Carotid Pulse wo Bruit Cardiovascular Regular Rate, Normal S1, Normal S2, No Murmurs Lungs Clear to Auscultation, Normal Air Movement Abdomen Normal Bowel Sounds, Soft, No Tenderness Neurological Normal Speech, Strength at 5/5 X4 Ext, Sensation Intact, Cranial Nerves 3-12 NL Extremities No Clubbing, No Cyanosis, No Edema Current Medications: Current Medications Sig/Rachel Start time Last Medication Dose Route Stop Time Status Admin Acetaminophen 650 MG Q6P PRN 01/16 161 DCD PO Aspirin 81 MG DAILY 01/17 1000 DCD 01/17 PO 0922 Aspirin 0 .STK-MED ONE 01/16 1649 DC PO Aspirin 81 MG DAILY 01/16 1558 DC 01/16 PO 1645 Ibuprofen 600 MG Q6P PRN 01/16 1615 DCD PO Meclizine HCl 25 MG ONCE ONE 01/16 1430 DC 01/16 PO 01/16 1431 1420 Meclizine HCl 0 .STK-MED ONE 01/16 1423 DC PO Oxycodone/ 2 TAB Q6P PRN 01/16 1615 DCD Acetaminophen PO Rivaroxaban 20 MG DAILY 01/16 1615 DCD 01/17 PO 0922 Rosuvastatin Calcium 40 MG 1700 01/16 1700 DCD 01/16 PO 2000 Sodium Chloride 1,000 ML ONCE ONE 01/16 1230 DC 01/16 IV 01/17 0149 1249 Results Last 48 Hrs of Labs/Mics: Laboratory Tests 01/17/17 0605: Anion Gap 8, Estimated GFR > 60, BUN/Creatinine Ratio 17.0, Troponin I < 0.01, CBC w Diff NO MAN DIFF REQ, RBC 5.24, MCV 87.4, MCH 29.2, RDW 14.1, MPV 8.6, Gran % 61.5, Lymphocytes % 25.9, Monocytes % 9.3, Eosinophils % 2.8, Basophils % 0.5, Absolute Granulocytes 6.3, Absolute Lymphocytes 2.7, Absolute Monocytes 1.0 H, Absolute Eosinophils 0.3, Absolute Basophils 0, PUBS MCHC 33.4 01/17/17 0045: Troponin I < 0.01 01/16/17 1850: Troponin I < 0.01 01/16/17 1550: Methadone Screen Cancelled, Barbiturate Screen Cancelled, Ur Phencyclidine Scrn Cancelled, Amphetamines Screen Cancelled, U Benzodiazepines Scrn Cancelled, Urine Cocaine Screen Cancelled, Urine Cannabis Screen Cancelled 01/16/17 1308: Urine Opiates Screen < 100.00, Methadone Screen < 40, Barbiturate Screen < 60, Ur Phencyclidine Scrn < 6.00, Amphetamines Screen < 100, U Benzodiazepines Scrn < 85, Urine Cocaine Screen < 50, Urine Cannabis Screen 53.70 H, Urinalysis LIGHT H, Urine Color YEL, Urine Clarity CLEAR, Urine pH 6.0, Ur Specific [place] 1.015, Urine Protein NEG, Urine Ketones NEG, Urine Nitrite NEG, Urine Bilirubin NEG, Urine Urobilinogen 0.2, Ur Leukocyte Esterase NEG, Ur Microscopic SEDIMENT EXAMINED, Urine RBC 1-3, Urine WBC RARE, Urine Bacteria RARE H, Urine Mucus FEW, Urine Hemoglobin SMALL H, Urine Glucose NEG 01/16/17 1235: Anion Gap 7, Estimated GFR > 60, BUN/Creatinine Ratio 21.1, Glucose 115 H, Calcium 9.4, Total Bilirubin 0.5, AST 22, ALT 29, Alkaline Phosphatase 45, Troponin I < 0.01, Total Protein 6.8, Albumin 4.1, Globulin 2.7, Albumin/ Globulin Ratio 1.5, PT 11.3, INR 1.08, CBC w Diff NO MAN DIFF REQ, RBC 5.38, MCV 87.3, MCH 29.3, RDW 14.0, MPV 7.7, Gran % 74.3, Lymphocytes % 18.0 L, Monocytes % 6.8, Eosinophils % 0.6, Basophils % 0.3, Absolute Granulocytes 6.8 H, Absolute Lymphocytes 1.7, Absolute Monocytes 0.6, Absolute Eosinophils 0.1, Absolute Basophils 0, PUBS MCHC 33.6, Serum Alcohol < 10.0 Assessment/Plan Assessment/Plan Assessment: 1. Lightheadedness and dizziness 2. Chest discomfort, rule out acute coronary syndrome 3. 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 Hyperlipidemia. Recommendations: -The patient has been stable with no recurrence of any cardiac symptoms. -Neurology input noted -The patient is ambulating without difficulty. -Cardiac workup thus far unremarkable. -The patient will follow-up with Dr. Mckeon as an outpatient and have a nuclear stress test performed as an outpatient. -This has been discussed with the patient who agrees to proceed with the aforementioned plan.
--- NOTE | 2017-01-17 21:30 | ECHOCARDIOGRAM REPORT ---
SHERRY EDWARDS Age: 56 : 1960 Gender: M Exam Date: 01/16/2017 18:07 Exam Location: [address] Ht (in): 70 Wt (lb): 194 BSA: 2.10 BP: 136 / 84 Ordering Physician: CLEMENTINA DEAN MD Referring Physician: Johnson Mckeon MD Technologist: Debbi Knight [facility] Room Number: [id number] Indications: CHEST PAIN Rhythm: Sinus Technical Quality: Good FINDINGS Left Ventricle Normal size left ventricle. Mild concentric left ventricular hypertrophy. Normal left ventricular ejection fraction visually estimated at >60%. No obvious regional wall motion abnormalities. Right Ventricle Normal right ventricular size and function. Right Atrium Normal right atrial size. Left Atrium Normal left atrial size. Mitral Valve Mitral valve thickened. Trace mitral regurgitation. Aortic Valve Diffuse thickening (sclerosis) of the aortic valve cusps without reduced excursion. No aortic stenosis. Trace aortic regurgitation. Tricuspid Valve Tricuspid valve not well visualized, grossly normal. Trace tricuspid regurgitation. No evidence of pulmonary hypertension. Pulmonic Valve Trace pulmonic regurgitation. Pulmonic valve not well visualized, grossly normal. Pericardium No pericardial effusion. Great Vessels Normal size aortic root. CONCLUSIONS Normal size left ventricle. Mild concentric left ventricular hypertrophy. Normal left ventricular ejection fraction visually estimated at > 60%. Trace mitral regurgitation. Trace aortic regurgitation. Trace tricuspid regurgitation. Johnson Mckeon M.D. (Electronically Signed) Final Date: 17 Jan 2017 21:30 MEASUREMENTS (Male / Female) Normal Values 2D ECHO LV Diastolic Diameter PLAX 4.2 cm 4.2 - 5.9 / 3.9 - 5.3 cm LV Systolic Diameter PLAX 2.7 cm 2.1 - 4.0 cm LV Fractional Shortening PLAX 35.7 % 25 - 46 % LV Ejection Fraction 2D Teich 65.6 % IVS Diastolic Thickness 1.3 cm LVPW Diastolic Thickness 1.2 cm LV Relative Wall Thickness 0.6 RV Internal Dim ED PLAX 3.4 cm 1.9 - 3.8 cm LVOT Diameter 2.2 cm Aortic Root Diameter 3.6 cm LA Systolic Diameter LX 3.6 cm 3.0 - 4.0 / 2.7 - 3.8 cm LA Volume 40.0 cm 18 - 58 / 22 - 52 cm Ascending Aorta Diameter 3.4 cm DOPPLER AV Peak Velocity 149.0 cm/s AV Peak Gradient 8.9 mmHg AV Mean Velocity 99.2 cm/s AV Mean Gradient 5.0 mmHg AV Velocity Time Integral 33.5 cm LVOT Peak Velocity 124.0 cm/s LVOT Peak Gradient 6.2 mmHg LVOT Mean Velocity 73.2 cm/s LVOT Mean Gradient 3.0 mmHg LVOT Velocity Time Integral 23.9 cm LVOT Stroke Volume 90.9 cm AV Area Cont Eq vti 2.7 cm AV Area Cont Eq pk 3.2 cm MV Peak Velocity 105.0 cm/s MV Peak Gradient 4.4 mmHg MV Mean Velocity 58.4 cm/s MV Mean Gradient 2.0 mmHg Mitral E Point Velocity 98.7 cm/s Mitral A Point Velocity 83.9 cm/s Mitral E to A Ratio 1.2 MV PHT Velocity 111.0 cm/s MV Deceleration [place] 398.0 cm/s MV Pressure Half Time 83.7 ms MV Area PHT 2.6 cm MV Deceleration Time 209.0 ms TR Peak Velocity 246.0 cm/s TR Peak Gradient 24.2 mmHg Right Atrial Pressure 5.0 mmHg Pulmonary Artery Systolic Pressu 29.2 mmHg Right Ventricular Systolic Press 29.2 mmHg PV Peak Velocity 102.0 cm/s PV Peak Gradient 4.2 mmHg PV Mean Velocity 70.7 cm/s PV Mean Gradient 2.0 mmHg PV Velocity Time Integral 20.9 cm LV E' Lateral Velocity 11.9 cm/s Mitral E to LV E' Lateral Ratio 8.3 LV E' Septal Velocity 9.3 cm/s Mitral E to LV E' Septal Ratio 10.7
== END 2017-01-17 12:07 ==
LOC: ERH 11:53 → ERHI 14:56 → ENRESERV 15:08 → 1NO 17:04 → ENPENDDIS 01-17 12:00 → 1NO 01-17 12:07
PROVIDERS: Emergency Medicine; Internal Medicine; ADMIT Internal Medicine
DX: R07.9 Chest pain, unspecified (principal); E78.5 Hyperlipidemia, unspecified; Z86.718 Personal history of other venous thrombosis and embolism; F17.200 Nicotine dependence, unspecified, uncomplicated; F12.90 Cannabis use, unspecified, uncomplicated; R42 Dizziness and giddiness; M48.00 Spinal stenosis, site unspecified; E87.5 Hyperkalemia; Z79.01 Long term (current) use of anticoagulants
CPT/HCPCS: 6020; 36415; 80307; 81001; 82436; 93005; 93010; 93306; 96360; 96361; G0378; G0480; J3490

== ENCOUNTER 2017-02-27 02:51 | Emergency (ER) | payer OTHER ==
[~2017-02-27] VITALS: Ht 172.7 cm; Wt 79.4 kg
[~2017-02-27 02:51] MED LIST: ASPIRIN81 M4 PO; CIPRO500 M1 PO; CRESTOR40 M2 PO; CRESTOR5 M1 PO; DIAZEPAM5 M1 PO; FLAGYL500 MG PO; IBUPROFEN800 M1 PO; KETOROLAC TROME10 M1 PO; XARELTO20 M2 PO
--- NOTE | 2017-02-27 03:22 | ED GI/GU/ABDOMINAL COMPLAINT ---
History of Present Illness General Chief Complaint: Abdominal Pain/Flank Pain Stated Complaint: SEEN EARLIER, ABD PAIN PER PT Source: patient, old records Exam Limitations: no limitations Vital Signs & Intake/Output Vital Signs & Intake/Output Vital Signs Date Time Temp Pulse Resp B/P B/P Pulse O2 O2 Flow FiO2 Mean Ox Delivery Rate 02/27 522 98.6 88 18 127/78 98 Room Air 02/27 05 98.9 02/27 0324 98 Room Air 02/27 0315 99.9 94 20 129/74 96 Room Air Allergies Coded Allergies: Anesthetics - Amide Type (MALIGNANT HYPERTHERMIA 02/26/17) Anesthetics - Helga Type- Parabens (MALIGNANT HYPERTHERMIA 02/26/17) Penicillins (SWELLING 02/26/17) Reconcile Medications Aspirin (Aspirin*) 81 MG TAB.CHEW 81 MG PO DAILY BLOOD HEALTH Ciprofloxacin HCl (Cipro) 500 MG TABLET 1 TAB PO BID DIVERTICULITIS Diazepam 5 MG TABLET 1 TAB PO QPM SLEEP (Reported) Docusate Sodium (Colace) 100 MG CAPSULE 1 CAP PO TID CONSTIPATION Ibuprofen 800 MG TABLET 1 TAB PO PRN PAIN (Reported) Ketorolac Tromethamine 10 MG TABLET 1 TAB PO TID PRN PAIN RECEIVED IM IN ER Metronidazole (Flagyl) 500 MG TABLET 1 TAB PO 4 TIMES/DAY DIVERTICULITIS Oxycodone HCl/Acetaminophen (Percocet 5-325 MG Tablet) 5 MG-325 MG TABLET 1 TAB PO BID BREAKTHROUGH PAIN Rivaroxaban (Xarelto) 20 MG TABLET 1 TAB PO DAILY DVT (Reported) with food Rosuvastatin Calcium (Crestor) 40 MG TABLET 1 TAB PO DAILY HIGH LIPID Triage Nurses Notes Reviewed? yes Onset: Gradual Duration: day(s): (2) Timing: recent history Location: left lower quadrant Radiation: no radiation Activities at Onset: none Prior Abdominal Problems: similar symptoms No Modifying Factors: none Associated Symptoms: abdominal pain, fever/chills HPI: 56 year old male diagnosed wtih diverticulitis earlier tonight presents with worsening abominal pain. He received a dose of toradol earlier this evening with relief. He took his first dose of cipro and flagyl and then the toradol that was prescribed. He has some increased pain and nausea with an episode of vomiting. Reported fever of 101.3. Past History Travel History Traveled to [place] past 21 day No Medical History Any Pertinent Medical History? 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 No Review of Systems Review of Systems Constitutional: Reports: chills, fever. EENTM: Reports: no symptoms. Respiratory: Denies: short of breath. Cardiovascular: Denies: chest pain. GI: Reports: abdominal pain, melena, vomiting. Denies: diarrhea. Genitourinary: Denies: discharge, dysuria. Musculoskeletal: Denies: back pain. Skin: Reports: no symptoms. Neurological/Psychological: Reports: no symptoms. Hematologic/Endocrine: Denies: bruising, bleeding, polyuria, polydipsia. Immunologic/Allergic: Denies: splenectomy. All Other Systems: Reviewed and Negative Physical Exam Physical Exam General Appearance: well developed/nourished, alert, awake, anxious, mild distress, moderate distress Head: atraumatic, normal appearance, active bleeding Eyes: Bilateral: normal appearance, PERRL, EOMI. Ears, Nose, Throat, Mouth: hearing grossly normal, moist mucous membrane Neck: normal inspection, supple, full range of motion Respiratory: normal breath sounds, chest non-tender, no respiratory distress Cardiovascular: regular rate/rhythm Peripheral Pulses: 2+ radial (R), 2+ radial (L) Gastrointestinal: normal bowel sounds, soft, tenderness (LLQ), NO REBOUND OR GUARDING Back: normal inspection, normal range of motion Extremities: normal range of motion Neurologic/Psych: no motor/sensory deficits, awake, alert, oriented x 3 Skin: intact, normal color, warm/dry Core Measures ACS in differential dx? No Severe Sepsis Present: No Septic Shock Present: No Progress Differential Diagnosis: diverticulitis, POOR PAIN CONTROL Plan of Care: Orders Procedure Date/time Status BLOOD CULTURE 02/28 348 Active CBC WITHOUT DIFFERENTIAL 02/28 348 Complete Laboratory Tests 02/27/17 0414: CBC w Diff NO MAN DIFF REQ, RBC 4.69 L, MCV 85.8, MCH 28.9, RDW 13.5, MPV 7.9, Gran % 73.6, Lymphocytes % 9.2 L, Monocytes % 16.3 H, Eosinophils % 0.7, Basophils % 0.2, Absolute Granulocytes 7.2 H, Absolute Lymphocytes 0.9 L, Absolute Monocytes 1.6 H, Absolute Eosinophils 0.1, Absolute Basophils 0, PUBS MCHC 33.7 02/27/17 0350: Urine Color Cancelled, Urine Clarity Cancelled, Urine pH Cancelled, Ur Specific [place] Cancelled, Urine Protein Cancelled, Urine Ketones Cancelled, Urine Nitrite Cancelled, Urine Bilirubin Cancelled, Urine Urobilinogen Cancelled, Ur Leukocyte Esterase Cancelled, Ur Microscopic Cancelled, Urine Hemoglobin Cancelled, Urine Glucose Cancelled Microbiology 02/27 414 BLOOD: Blood Culture - RECD 02/28 348 BLOOD: Blood Culture - RECD Initial ED EKG: none Departure Departure Time of Disposition: 517 Disposition: HOME OR SELF CARE Condition: Stable Clinical Impression Primary Impression: Diverticulitis Referrals: MANSOOR MOTTA,MARCELO Licea (PCP/Family) Additional Instructions: TAKE THE PERCOCET AND COLACE DIRECTED. CONTINUE THE CIPRO AND FLAGYL DIRECTED. RETURN TO THE ER IF YOUR PAIN ESCALATES, IF YOU CONTINUE TO HAVE HIGH FEVERS OR IF YOU CANNOT TOLERATE YOUR ANTIBIOTICS. Departure Forms: Customer Survey General Discharge Information Prescriptions: Current Visit Scripts Oxycodone HCl/Acetaminophen (Percocet 5-325 MG Tablet) 1 TAB PO BID #12 TAB Docusate Sodium (Colace) 1 CAP PO TID #60 CAP
[2017-02-27 04:36] LABS: ABSOLUTE BASOPHIL COUNT 0 /CUMM (0.0-0.2); ABSOLUTE GRANULOCYTE CT 7.2 /CUMM (1.4-6.5); ABSOLUTE MONOCYTE COUNT 1.6 /CUMM (0.10-0.60); MEAN CORPUSCULAR HGB 28.9 PG (27.0-31.0); MEAN PLATELET VOLUME 7.9 FL (7.4-10.4); PLATELET COUNT 156 /CUMM (130-400); RED BLOOD CELL CT 4.69 /CUMM (4.70-6.10)
[2017-02-27 04:44] LABS: ABSOLUTE EOSINOPHIL COUNT 0.1 /CUMM (0.0-0.7); ABSOLUTE LYMPH COUNT 0.9 /CUMM (1.2-3.4); BASOPHIL % 0.2 % (0.0-2.0); EOSINOPHIL % 0.7 % (0-5); GRANULOCYTE % 73.6 % (42.2-75.2); MEAN CORPUSCULAR HGB CONC 33.7 G/DL (33.0-37.0); MEAN CORPUSCULAR VOLUME 85.8 FL (80.0-94.0); RBC DISTRIBUTION WIDTH 13.5 % (11.5-14.5); WHITE BLOOD CELL COUNT 9.9 /CUMM (4.8-10.8)
[2017-02-27 04:48] LABS: HEMATOCRIT 40.2 % (42-52)
[2017-02-27] MEDS ORDERED: COLACE100 M1 PO (05:19)
[2017-02-27] MEDS ORDERED: PERCOCET 5-3251 EACH PO (05:19)
[2017-02-27 05:22] VITALS: BP 127/78
== END 2017-02-27 05:22 ==
LOC: ERH 02:51
PROVIDERS: Emergency Medicine
DX: K57.92 Diverticulitis of intestine, part unspecified, without perforation or abscess without bleeding (principal)
CPT/HCPCS: 87040; 96365; J0131